=== PATIENT | male | born 1995 | race Caucasian/White ===

== ENCOUNTER 2018-01-18 03:08 | Emergency (ER) | payer MEDICAID ==
[~2018-01-18] VITALS: Ht 182.9 cm; Wt 67.3 kg
[~2018-01-18 03:08] MED LIST: CLIN300C85 PO; NO HOME MEDS
[2018-01-18 03:11] VITALS: BP 140/81
[2018-01-18] MEDS ORDERED: HYDR25SU32 RC (03:27)
[2018-01-18] MEDS ORDERED: DOCU-28 PO (03:27)
== END 2018-01-18 03:35 | disposition home or self-care (01) ==
LOC: ER 03:09
DX: K64.4 Residual hemorrhoidal skin tags (principal); F17.200 Nicotine dependence, unspecified, uncomplicated; Z79.2 Long term (current) use of antibiotics; Z79.899 Other long term (current) drug therapy
CPT/HCPCS: 99283

== ENCOUNTER 2019-02-01 18:14 | Emergency (ER) | payer MEDICAID ==
[~2019-02-01] VITALS: Ht 182.9 cm; Wt 67.3 kg
[~2019-02-01 18:14] MED LIST changes: +CLIN-90 PO; -CLIN300C85 PO; +DOCU-28 PO; +HYDR25SU32 RC
[2019-02-01 18:29] VITALS: BP 141/91
[2019-02-01 19:51] LABS: BASOPHILS % (AUTO) 0.3 % (0-1); EOSINOPHILS % (AUTO) 0.4 % (0-6); HEMATOCRIT 46.3 % (42.0-52.0); HEMOGLOBIN 15.8 g/dl (14.0-17.9); LYMPHOCYTES # (AUTO) 1.7 X10'3 (1.1-4.8); LYMPHOCYTES % (AUTO) 29.1 % (21-51); MEAN CORPUSCULAR HEMOGLOBIN 31.9 PG (27.0-31.0); MEAN CORPUSCULAR HGB CONC 34.2 g/dL (33.0-36.5); MEAN CORPUSCULAR VOLUME 93.1 FL (78-98); MEAN PLATELET VOLUME 9.9 FL (7.4-10.4); MONOCYTES # (AUTO) 0.5 X10'3 (0-0.9); MONOCYTES % (AUTO) 7.9 % (2-12); NEUTROPHILS # (AUTO) 3.7 X10'3 (1.8-7.7); NEUTROPHILS % (AUTO) 62.3 % (42-75); PLATELET COUNT 253 X10'3 (140-440); RED BLOOD COUNT 4.97 X10'6 (4.70-6.10); RED CELL DISTRIBUTION WIDTH 13.1 % (11.5-14.5); WHITE BLOOD COUNT 5.9 X10'3 (4.5-11.0)
[2019-02-01 20:02] LABS: ALANINE AMINOTRANSFERASE 155 U/L (12-78); ALBUMIN 4.4 G/DL (3.4-5.0); ALBUMIN/GLOBULIN RATIO 1.1 (1.1-1.5); ALKALINE PHOSPHATASE 101 IU/L (46-116); ANION GAP 7 (8-16); ASPARTATE AMINO TRANSFERASE 98 U/L (10-37); BILIRUBIN,TOTAL 0.4 MG/DL (0.1-1.0); BLOOD UREA NITROGEN 8 MG/DL (7-18); BUN/CREATININE RATIO 6.9 (5.4-32.0); CALCIUM 9.4 MG/DL (8.5-10.1); CHLORIDE 101 MMOL/L (99-107); CREATININE 1.16 MG/DL (0.60-1.10); GLUCOSE 89 MG/DL (70-104); LIPASE 101 U/L (73-393); POTASSIUM 3.6 MMOL/L (3.5-5.1); SODIUM 140 MMOL/L (135-145); TOTAL CARBON DIOXIDE 32.1 MMOL/L (24-32); TOTAL PROTEIN 8.4 G/DL (6.4-8.2); eGFR 79 ML/MIN
--- NOTE | 2019-02-01 20:07 | NUR ---
PT HAVING ULTRA SOUND TO THE RIGHT TESTICLE NOW
[2019-02-01 20:22] LABS: CLARITY,URINE CLEAR (Clear); COLOR,URINE YELLOW (Yellow); GLUCOSE, URINE NEGATIVE (Neg); KETONES,URINE NEGATIVE (Neg); LEUKOCYTE ESTERASE ,URINE NEGATIVE (Neg); NITRITES, URINE NEGATIVE (Neg); OCCULT BLOOD,URINE SMALL (Neg); PH,URINE 6.5 (4.8-8.0); PROTEIN,URINE NEGATIVE (Neg); UROBILINOGEN,URINE 0.2 E.U/dL (0.2-1.0)
[2019-02-01 20:23] LABS: UA COLLECTION TYPE CLN CATCH MIDSTREAM
[2019-02-01 20:28] LABS: BACTERIA,URINE NONE SEEN /HPF (Neg); MUCUS STRANDS NONE SEEN /LPF (Neg); SQUAMOUS EPITHELIAL CELL,UR FEW /LPF (FEW); WBC,URINE 0-4 /HPF (0-4)
== END 2019-02-01 21:11 | disposition home or self-care (01) ==
LOC: ER 18:15
DX: R10.32 Left lower quadrant pain (principal); R10.2 Pelvic and perineal pain; F12.90 Cannabis use, unspecified, uncomplicated; F10.99 Alcohol use, unspecified with unspecified alcohol-induced disorder; Z79.899 Other long term (current) drug therapy; Y90.9 Presence of alcohol in blood, level not specified
CPT/HCPCS: 36415; 76870; 80053; 81001; 83690; 85025; 99284

== ENCOUNTER 2019-05-16 15:22 | Emergency (ER) | payer MEDICAID ==
[~2019-05-16] VITALS: Ht 182.9 cm; Wt 72.5 kg
[~2019-05-16 15:22] MED LIST changes: -CLIN-90 PO; +CLIN-97 PO
--- NOTE | 2019-05-16 15:26 | NUR ---
Pts mother has gone home as there are no visitors [phone]
[2019-05-16] MEDS ORDERED: HYDROcodone/acetaminophen 5mg/325mg tablet PO ONE (17:15)
[2019-05-16 18:13] VITALS: BP 122/59
== END 2019-05-16 18:07 | disposition home or self-care (01) ==
LOC: ER 15:23
DX: T20.26XA Burn of second degree of forehead and cheek, initial encounter (principal); T20.17XA Burn of first degree of neck, initial encounter; F12.90 Cannabis use, unspecified, uncomplicated; Z72.89 Other problems related to lifestyle; Z79.899 Other long term (current) drug therapy; X16.XXXA Contact with hot heating appliances, radiators and pipes, initial encounter; Y93.89 Activity, other specified; Y92.89 Other specified places as the place of occurrence of the external cause; Y99.8 Other external cause status
CPT/HCPCS: 16020; 99285

== ENCOUNTER 2019-05-19 13:36 | Outpatient (CLI) | payer MEDICAID ==
[2019-05-19] MEDS ORDERED: gentamicin 0.1% topical ointment 15gm TP ONE (14:56)
== END 2019-05-19 15:33 | disposition home or self-care (01) ==
LOC: WOUND CARE 13:36 → EDSTATUS 13:40 → WOUND CARE 15:33
PROVIDERS: ATTEND Nurse Practitioner
DX: T20.20XA Burn of second degree of head, face, and neck, unspecified site, initial encounter (principal); T31.0 Burns involving less than 10% of body surface; T20.2 Burn of second degree of head, face, and neck; T20.24XD Burn of second degree of nose (septum), subsequent encounter; T20.26XD Burn of second degree of forehead and cheek, subsequent encounter; F12.90 Cannabis use, unspecified, uncomplicated; Z79.899 Other long term (current) drug therapy; Z72.0 Tobacco use; X08.8XXA Exposure to other specified smoke, fire and flames, initial encounter; Y93.89 Activity, other specified; Y92.89 Other specified places as the place of occurrence of the external cause; Y99.9 Unspecified external cause status
CPT/HCPCS: G0463

== ENCOUNTER 2019-05-22 13:45 | Outpatient (CLI) | payer MEDICAID ==
[2019-05-22] MEDS ORDERED: gentamicin 0.1% topical ointment 15gm TP ONE (14:03)
== END 2019-05-22 14:34 | disposition home or self-care (01) ==
LOC: WOUND CARE 13:45
PROVIDERS: ATTEND Nurse Practitioner
DX: T20.20XD Burn of second degree of head, face, and neck, unspecified site, subsequent encounter (principal); T31.0 Burns involving less than 10% of body surface; T20.2 Burn of second degree of head, face, and neck; T20.24XD Burn of second degree of nose (septum), subsequent encounter; T20.26XD Burn of second degree of forehead and cheek, subsequent encounter; F12.90 Cannabis use, unspecified, uncomplicated; Z79.899 Other long term (current) drug therapy; Z72.0 Tobacco use; X08.8XXD Exposure to other specified smoke, fire and flames, subsequent encounter
CPT/HCPCS: G0463

== ENCOUNTER 2019-05-24 13:30 | Outpatient (CLI) | payer MEDICAID ==
[2019-05-24] MEDS ORDERED: gentamicin 0.1% topical ointment 15gm TP ONE ×2 (14:00→14:03)
== END 2019-05-24 14:17 | disposition home or self-care (01) ==
LOC: WOUND CARE 13:30
PROVIDERS: ATTEND Nurse Practitioner
DX: T20.20XD Burn of second degree of head, face, and neck, unspecified site, subsequent encounter (principal); T31.0 Burns involving less than 10% of body surface; T20.2 Burn of second degree of head, face, and neck; T20.24XD Burn of second degree of nose (septum), subsequent encounter; T20.26XD Burn of second degree of forehead and cheek, subsequent encounter; F12.90 Cannabis use, unspecified, uncomplicated; Z79.899 Other long term (current) drug therapy; Z72.0 Tobacco use; X08.8XXD Exposure to other specified smoke, fire and flames, subsequent encounter
CPT/HCPCS: G0463

== ENCOUNTER 2019-05-29 14:00 | Outpatient (CLI) | payer MEDICAID | END 2019-05-29 14:15 | disposition home or self-care (01) | LOC: EDSTATUS 14:00 → WOUND CARE 14:00 | PROVIDERS: ATTEND Nurse Practitioner | DX: T20.20XD Burn of second degree of head, face, and neck, unspecified site, subsequent encounter (principal); T31.0 Burns involving less than 10% of body surface; T20.2 Burn of second degree of head, face, and neck; T20.24XD Burn of second degree of nose (septum), subsequent encounter; T20.26XD Burn of second degree of forehead and cheek, subsequent encounter; F12.90 Cannabis use, unspecified, uncomplicated; Z79.899 Other long term (current) drug therapy; Z72.0 Tobacco use; X08.8XXD Exposure to other specified smoke, fire and flames, subsequent encounter | CPT/HCPCS: G0463 ==

== ENCOUNTER 2020-07-30 17:48 | Emergency (ER) | payer MEDICAID ==
[~2020-07-30] VITALS: Ht 185.4 cm; Wt 63.6 kg
[2020-07-30 18:16] VITALS: BP 115/74
[2020-07-30] MEDS ORDERED: PENI500T2 PO (18:19)
[2020-07-30] MEDS ORDERED: IBUP-1984 PO (18:19)
== END 2020-07-30 18:51 | disposition home or self-care (01) ==
LOC: ER 17:49
DX: K04.7 Periapical abscess without sinus (principal); K08.89 Other specified disorders of teeth and supporting structures; R51.9 Headache, unspecified; F12.90 Cannabis use, unspecified, uncomplicated; Z72.89 Other problems related to lifestyle; Z79.2 Long term (current) use of antibiotics; Z79.899 Other long term (current) drug therapy
CPT/HCPCS: 99283

== ENCOUNTER 2021-04-29 16:53 | Emergency (ER) | payer MEDICAID ==
[~2021-04-29] VITALS: Ht 182.9 cm; Wt 70.5 kg
[2021-04-29 16:56] VITALS: BP 127/91
[2021-04-29] MEDS ORDERED: hydrOXYzine 25 MG tablet PO ONE (17:00)
[2021-04-29] MEDS ORDERED: triamcinolone acetonide 40mg/ml inj IM ONE (17:00)
[2021-04-29] MEDS ORDERED: ALBU6.7H9 INH (17:02)
== END 2021-04-29 17:35 | disposition home or self-care (01) ==
LOC: ER 16:53
DX: L23.7 Allergic contact dermatitis due to plants, except food (principal); F12.90 Cannabis use, unspecified, uncomplicated; Z79.2 Long term (current) use of antibiotics; Z79.899 Other long term (current) drug therapy; Z72.89 Other problems related to lifestyle
CPT/HCPCS: 96372; 99283; J3301; Q0177

== ENCOUNTER 2021-06-14 10:07 | Emergency (ER) | payer MEDICAID ==
[~2021-06-14] VITALS: Ht 185.4 cm; Wt 77.0 kg
[~2021-06-14 10:07] MED LIST changes: +ALBU6.7H9 INH
[2021-06-14 10:54] VITALS: BP 131/97
[2021-06-14] MEDS ORDERED: HYDR-3972 PO ×2 (12:17→13:48)
--- NOTE | 2021-06-14 12:40 | NUR ---
Patient seen and assessed by provider.
== END 2021-06-14 12:47 | disposition home or self-care (01) ==
LOC: ER 10:07
DX: K04.7 Periapical abscess without sinus (principal); K08.89 Other specified disorders of teeth and supporting structures; F12.90 Cannabis use, unspecified, uncomplicated; Z72.89 Other problems related to lifestyle; Z79.2 Long term (current) use of antibiotics; Z79.899 Other long term (current) drug therapy
CPT/HCPCS: 99283

== ENCOUNTER 2021-10-09 17:21 | Emergency (ER) | payer MEDICAID ==
[~2021-10-09] VITALS: Ht 185.4 cm; Wt 75.0 kg
[2021-10-09] MEDS ORDERED: ringers solution, lacted 1,000 ML IV ONE (17:45)
[2021-10-09 17:52] VITALS: BP 130/68
[2021-10-09 18:20] LABS: BASOPHILS % (AUTO) 0.5 % (0-1); EOSINOPHILS # (AUTO) 0.1 X10'3 (0-0.9); EOSINOPHILS % (AUTO) 1.4 % (0-6); HEMATOCRIT 50.5 % (42.0-52.0); HEMOGLOBIN 16.7 g/dl (14.0-17.9); LYMPHOCYTES # (AUTO) 2.3 X10'3 (1.1-4.8); LYMPHOCYTES % (AUTO) 38.5 % (21-51); MEAN CORPUSCULAR HEMOGLOBIN 31.2 PG (27.0-31.0); MEAN CORPUSCULAR HGB CONC 33.1 g/dL (33.0-36.5); MEAN CORPUSCULAR VOLUME 94.1 FL (78-98); MEAN PLATELET VOLUME 9.8 FL (7.4-10.4); MONOCYTES # (AUTO) 0.5 X10'3 (0-0.9); MONOCYTES % (AUTO) 8.5 % (2-12); NEUTROPHILS % (AUTO) 51.1 % (42-75); PLATELET COUNT 273 X10'3 (140-440); RED BLOOD COUNT 5.37 X10'6 (4.70-6.10); RED CELL DISTRIBUTION WIDTH 13.3 % (11.5-14.5)
[2021-10-09 18:32] LABS: APTT 26 SECONDS (22-32); D-DIMER 0.45 MG/L FEU (0-0.50)
[2021-10-09 18:34] LABS: ALANINE AMINOTRANSFERASE 112 U/L (12-78); ALBUMIN/GLOBULIN RATIO 1.1 (1.1-1.5); ALKALINE PHOSPHATASE 108 IU/L (46-116); ANION GAP 11 (8-16); ASPARTATE AMINO TRANSFERASE 77 U/L (10-37); BILIRUBIN,TOTAL 0.4 MG/DL (0.1-1.0); BLOOD UREA NITROGEN 6 MG/DL (7-18); BUN/CREATININE RATIO 9.1 (5.4-32.0); CALCIUM 8.9 MG/DL (8.5-10.1); CHLORIDE 108 MMOL/L (99-107); CREATININE 0.66 MG/DL (0.60-1.10); GLUCOSE 103 MG/DL (70-104); POTASSIUM 3.4 MMOL/L (3.5-5.1); SODIUM 143 MMOL/L (135-145); TOTAL CARBON DIOXIDE 23.8 MMOL/L (24-32); TOTAL PROTEIN 7.7 G/DL (6.4-8.2); eGFR > 90 ML/MIN
[2021-10-09 18:43] LABS: MAGNESIUM 1.8 MG/DL (1.5-2.4)
== END 2021-10-09 19:39 | disposition left against medical advice (07) ==
LOC: ER 17:22
DX: R07.89 Other chest pain (principal); F12.90 Cannabis use, unspecified, uncomplicated
CPT/HCPCS: 36415; 80053; 83735; 83880; 84484; 85025; 85379; 85610; 85730; 93005; 99284

== ENCOUNTER 2023-02-04 11:42 | Emergency (ER) | payer OTHER, MEDICAID ==
[~2023-02-04] VITALS: Ht 182.9 cm; Wt 64.5 kg
[~2023-02-04 11:42] MED LIST changes: +ALBU6.7H14 INH; -ALBU6.7H9 INH
[2023-02-04] MEDS ORDERED: iohexol 300mg/ml 100ml inj. ONE (12:01)
[2023-02-04 12:03] VITALS: TEMP 98.2
[2023-02-04] MEDS ORDERED: HYDROmorphone 1 mg/ml syringe IV ONE (12:05)
[2023-02-04] MEDS ORDERED: ondansetron/PF 4mg/2ml inj IV ONE (12:05)
[2023-02-04 12:50] LABS: BASOPHILS % (AUTO) 0.7 % (0-1); EOSINOPHILS # (AUTO) 0.1 X10'3 (0-0.9); EOSINOPHILS % (AUTO) 1.7 % (0-6); HEMATOCRIT 42.9 % (42.0-52.0); HEMOGLOBIN 14.3 g/dl (14.0-17.9); LYMPHOCYTES # (AUTO) 1.9 X10'3 (1.1-4.8); LYMPHOCYTES % (AUTO) 39.8 % (21-51); MEAN CORPUSCULAR HEMOGLOBIN 31.7 PG (27.0-31.0); MEAN CORPUSCULAR HGB CONC 33.4 g/dL (33.0-36.5); MEAN CORPUSCULAR VOLUME 94.9 FL (78-98); MEAN PLATELET VOLUME 9.6 FL (7.4-10.4); MONOCYTES # (AUTO) 0.3 X10'3 (0-0.9); MONOCYTES % (AUTO) 7.4 % (2-12); NEUTROPHILS # (AUTO) 2.4 X10'3 (1.8-7.7); NEUTROPHILS % (AUTO) 50.4 % (42-75); PLATELET COUNT 272 X10'3 (140-440); RED BLOOD COUNT 4.53 X10'6 (4.70-6.10); RED CELL DISTRIBUTION WIDTH 13.6 % (11.5-14.5); WHITE BLOOD COUNT 4.7 X10'3 (4.5-11.0)
[2023-02-04 12:56] LABS: BILIRUBIN,URINE NEGATIVE (Neg); CLARITY,URINE CLEAR (Clear); COLOR,URINE YELLOW (Yellow); GLUCOSE, URINE NEGATIVE (Neg); KETONES,URINE NEGATIVE (Neg); LEUKOCYTE ESTERASE ,URINE NEGATIVE (Neg); NITRITES, URINE NEGATIVE (Neg); OCCULT BLOOD,URINE NEGATIVE (Neg); PROTEIN,URINE NEGATIVE (Neg); UROBILINOGEN,URINE 0.2 E.U/dL (0.2-1.0)
[2023-02-04] MEDS ORDERED: ketorolac trometh. 30mg/ml inj. IV ONE (13:00)
[2023-02-04 13:05] LABS: UA COLLECTION TYPE URINAL
[2023-02-04 13:08] LABS: ALANINE AMINOTRANSFERASE 149 U/L (12-78); ALBUMIN 4.2 G/DL (3.4-5.0); ALBUMIN/GLOBULIN RATIO 1.1 (1.1-1.5); ALKALINE PHOSPHATASE 108 IU/L (46-116); ANION GAP 13 (8-16); ASPARTATE AMINO TRANSFERASE 173 U/L (10-37); BILIRUBIN,TOTAL 0.7 MG/DL (0.1-1.0); BLOOD UREA NITROGEN 5 MG/DL (7-18); BUN/CREATININE RATIO 6.7 (10.0-20.0); CALCIUM 8.8 MG/DL (8.5-10.1); CHLORIDE 100 MMOL/L (99-107); CREATININE 0.75 MG/DL (0.60-1.10); GLUCOSE 153 MG/DL (70-104); LIPASE 37 U/L (16-77); POTASSIUM 3.4 MMOL/L (3.5-5.1); SODIUM 138 MMOL/L (135-145); TOTAL CARBON DIOXIDE 25.4 MMOL/L (24-32); TOTAL PROTEIN 8.1 G/DL (6.4-8.2); eCRCL 136 ML/MIN; eGFR > 90 ML/MIN
[2023-02-04] MEDS ORDERED: NAPR-56 PO (13:42)
[2023-02-04] MEDS ORDERED: CYCL-1 PO (13:42)
[2023-02-04 14:04] VITALS: BP 121/85; PULSE 94; RESP 18; O2SAT 100
== END 2023-02-04 14:06 | disposition home or self-care (01) ==
LOC: ER 11:43
DX: S30.1XXA Contusion of abdominal wall, initial encounter (principal); V87.7XXA Person injured in collision between other specified motor vehicles (traffic), initial encounter; F12.10 Cannabis abuse, uncomplicated; Z79.899 Other long term (current) drug therapy
CPT/HCPCS: 36415; 70450; 71260; 72125; 74177; 80053; 81003; 82948; 83690; 85025; 86885; 86900; 86901; 96374; 96375; 99285; J1170; J1885; J2405; J3490; Q9967

== ENCOUNTER 2023-03-15 14:13 | Emergency (ER) | payer MEDICAID ==
[~2023-03-15 14:13] MED LIST changes: +CYCL-1 PO
== END 2023-03-15 16:17 | disposition left against medical advice (07) ==
LOC: ER 14:13
DX: R07.89 Other chest pain (principal); Z53.21 Procedure and treatment not carried out due to patient leaving prior to being seen by health care provider; V89.2XXA Person injured in unspecified motor-vehicle accident, traffic, initial encounter; Y93.89 Activity, other specified; Y92.89 Other specified places as the place of occurrence of the external cause; Y99.8 Other external cause status
CPT/HCPCS: 99281

== ENCOUNTER 2023-07-05 12:22 | Emergency (ER) | payer MEDICAID ==
[~2023-07-05] VITALS: Ht 185.4 cm; Wt 63.0 kg
[2023-07-05 12:26] VITALS: BP 117/75; PULSE 76; RESP 18; TEMP 97.8; O2SAT 98
[2023-07-05] MEDS ORDERED: MECO10005 PO (12:45)
[2023-07-05] MEDS ORDERED: CHLO25CA10 PO (12:45)
[2023-07-05] MEDS ORDERED: FOLI0.8C PO (12:45)
[2023-07-05] MEDS ORDERED: THIA50TA10 PO (12:45)
== END 2023-07-05 12:52 | disposition home or self-care (01) ==
LOC: ER 12:22
DX: Z00.00 Encounter for general adult medical examination without abnormal findings (principal); F10.20 Alcohol dependence, uncomplicated; F12.90 Cannabis use, unspecified, uncomplicated
CPT/HCPCS: 99283

== ENCOUNTER 2023-11-15 11:37 | Inpatient (IN) | payer MEDICAID ==
[~2023-11-15] VITALS: Ht 180.3 cm; Wt 66.3 kg
[~2023-11-15 11:37] MED LIST changes: +CHLO25CA10 PO; +FOLI0.8C PO; +MECO10005 PO; +THIA50TA10 PO
[2023-11-15 13:32] LABS: MEAN CORPUSCULAR HEMOGLOBIN 34.4 PG (27.0-31.0); MEAN CORPUSCULAR HGB CONC 33.9 g/dL (33.0-36.5); MEAN CORPUSCULAR VOLUME 101.5 FL (78-98); MEAN PLATELET VOLUME 9.1 FL (7.4-10.4); PLATELET COUNT 145 X10'3 (140-440); RED BLOOD COUNT 1.94 X10'6 (4.70-6.10); RED CELL DISTRIBUTION WIDTH 17.8 % (11.5-14.5)
[2023-11-15 13:40] LABS: HEMOGLOBIN 6.7 g/dl (14.0-17.9)
[2023-11-15 13:41] LABS: HEMATOCRIT 19.7 % (42.0-52.0)
[2023-11-15 13:44] LABS: ALANINE AMINOTRANSFERASE 41 U/L (12-78); ALBUMIN 2.2 G/DL (3.4-5.0); ALKALINE PHOSPHATASE 176 IU/L (46-116); ANION GAP 9 (8-16); ASPARTATE AMINO TRANSFERASE 122 U/L (10-37); BILIRUBIN,TOTAL 4.5 MG/DL (0.1-1.0); BLOOD UREA NITROGEN 4 MG/DL (7-18); BUN/CREATININE RATIO 5.1 (10.0-20.0); CALCIUM 7.8 MG/DL (8.5-10.1); CHLORIDE 103 MMOL/L (99-107); CREATININE 0.78 MG/DL (0.60-1.10); GLUCOSE 110 MG/DL (70-104); POTASSIUM 3.5 MMOL/L (3.5-5.1); SODIUM 137 MMOL/L (135-145); TOTAL CARBON DIOXIDE 24.9 MMOL/L (24-32); eCRCL 130 ML/MIN; eGFR > 90 ML/MIN
[2023-11-15 13:45] LABS: ALBUMIN/GLOBULIN RATIO 0.5 (1.1-1.5); TOTAL PROTEIN 6.5 G/DL (6.4-8.2)
[2023-11-15 13:53] LABS: TOTAL CELLS COUNTED 100
[2023-11-15 13:54] LABS: ANISOCYTOSIS 1+; HYPOCHROMASIA 1+; PLATELET ESTIMATE NORMAL
[2023-11-15 13:55] LABS: TARGET CELLS 1+
[2023-11-15] MEDS: normal saline 1000ML IV soln IVB ONE (13:56)
[2023-11-15] MEDS: ondansetron/PF 4mg/2ml inj IV ONE (13:56)
[2023-11-15] MEDS: morphine 4 MG/ML inj SYRINge IV ONE (14:01)
[2023-11-15] MEDS: ketorolac trometh 15mg/ml vial 15 MG/ML ML IV ONE (14:06)
[2023-11-15] MEDS ORDERED: iohexol 300mg/ml 100ml inj. ONE (14:16)
[2023-11-15 14:26] LABS: INR 1.6 INR; PROTHROMBIN TIME 16.3 SECONDS (9.0-12.0)
[2023-11-15 14:39] LABS: BILIRUBIN,URINE MODERATE (Neg); CLARITY,URINE CLOUDY (Clear); COLOR,URINE YELLOW (Yellow); GLUCOSE, URINE 100 mg/dl (Neg); KETONES,URINE TRACE mg/dl (Neg); LEUKOCYTE ESTERASE ,URINE NEGATIVE (Neg); NITRITES, URINE POSITIVE (Neg); OCCULT BLOOD,URINE LARGE (Neg); PH,URINE 5.5 (4.8-8.0); PROTEIN,URINE TRACE mg/dl (Neg)
[2023-11-15 14:40] LABS: URINE AMPHETAMINE SCREEN NEGATIVE (Neg); URINE BARBITUATE SCREEN NEGATIVE (Neg); URINE BENZODIAZEPINES SCREEN NEGATIVE (Neg); URINE CANNABINOID SCREEN POSITIVE (Neg); URINE COCAINE SCREEN NEGATIVE (Neg); URINE METHADONE SCREEN NEGATIVE (Neg); URINE OPIATE SCREEN NEGATIVE (Neg); URINE PHENCYCLIDINE SCREEN NEGATIVE (Neg)
[2023-11-15 15:13] LABS: OXYGEN SATURATION (MIXED VEN) 68.1 % (60-80); PO2 MIXED VENOUS (TEMP COR) 36.9 mmHg (35-46)
[2023-11-15 15:36] LABS: UA COLLECTION TYPE CLN CATCH MIDSTREAM
[2023-11-15 15:39] LABS: MUCUS STRANDS MANY /LPF (Neg); SQUAMOUS EPITHELIAL CELL,UR FEW /LPF (FEW)
[2023-11-15 15:40] LABS: BACTERIA,URINE 2+ /HPF (Neg); RBC,URINE 20-50 /HPF (0-2)
[2023-11-15] MEDS: CefTRIAXone 2gm/D5W 50ml BAG 50 ML IV ONE (16:14)
[2023-11-15 16:27] VITALS: BP 117/75; PULSE 96; RESP 12; TEMP 99.2
[2023-11-15 16:47] VITALS: BP 114/70; PULSE 76; RESP 17; TEMP 98.7
[2023-11-15] MEDS ORDERED: acetaminophen 325mg tablet PO PRN (17:00)
[2023-11-15] MEDS ORDERED: potassium Cl 20 mEq SR tablet PO PRN ×2 (17:00)
[2023-11-15] MEDS ORDERED: mag hydrox/Alum hydrox/simeth 30ml oral suspension PO PRN (17:00)
[2023-11-15] MEDS ORDERED: magnesium sulf-water 4G/100mL 100 ML IV PRN (17:00)
[2023-11-15] MEDS ORDERED: potassium Cl 40MEQ/1/2NS 520ml 520 ML IV PRN (17:00)
[2023-11-15] MEDS ORDERED: magnesium sulf-water 2g/50mL 50 ML IV PRN (17:00)
[2023-11-15] MEDS: pantoprazole 40MG/NS 100ML BAG 100 ML IV SCH (17:11)
[2023-11-15] MEDS: pantoprazole 40 MG vial IV STA (17:11)
[2023-11-15 17:47] VITALS: BP 115/71; PULSE 81; RESP 18; TEMP 98.6
[2023-11-15] MEDS ORDERED: LORazepam 2 mg/ml vial IV PRN (17:50)
[2023-11-15 19:00] VITALS: BP 105/68; PULSE 77; RESP 14; TEMP 97.9
[2023-11-15] MEDS: normal saline 1000ml 1,000 ML IV SCH (19:30)
[2023-11-15] MEDS: CefTRIAXone/D5W-Rocephin 1gm 50 ML IV SCH (19:31)
[2023-11-15] MEDS ORDERED: HYDR-3964 PO (19:39)
[2023-11-15] MEDS ORDERED: FLO0.4C (19:39)
[2023-11-15 19:55] LABS: HDL CHOLESTEROL 52 MG/DL (35-60); LDL CHOLESTEROL 89 MG/DL (50-100)
[2023-11-15 19:57] LABS: CHOL/HDL RATIO 3.3 (0.00-4.99); CHOLESTEROL 171 MG/DL (0-200); TRIGLYCERIDES 78 MG/DL (20-135)
[2023-11-15] MEDS: docusate sod 100mg capsule PO SCH (20:00)
[2023-11-15] MEDS: K and/or MAG REPLACEMENT MC SCH (20:38)
[2023-11-15 22:42] LABS: BASOPHILS % (AUTO) 0.3 % (0-1); EOSINOPHILS % (AUTO) 0.4 % (0-6); HEMOGLOBIN 7.2 g/dl (14.0-17.9); LYMPHOCYTES # (AUTO) 1.6 X10'3 (1.1-4.8); LYMPHOCYTES % (AUTO) 16.6 % (21-51); MEAN CORPUSCULAR HEMOGLOBIN 34.3 PG (27.0-31.0); MEAN CORPUSCULAR HGB CONC 34.1 g/dL (33.0-36.5); MEAN CORPUSCULAR VOLUME 100.4 FL (78-98); MEAN PLATELET VOLUME 9.6 FL (7.4-10.4); MONOCYTES # (AUTO) 0.8 X10'3 (0-0.9); MONOCYTES % (AUTO) 7.6 % (2-12); NEUTROPHILS # (AUTO) 7.4 X10'3 (1.8-7.7); NEUTROPHILS % (AUTO) 75.1 % (42-75); PLATELET COUNT 133 X10'3 (140-440); RED BLOOD COUNT 2.11 X10'6 (4.70-6.10); RED CELL DISTRIBUTION WIDTH 16.9 % (11.5-14.5); WHITE BLOOD COUNT 9.9 X10'3 (4.5-11.0)
[2023-11-15 22:47] LABS: HEMATOCRIT 21.2 % (42.0-52.0)
[2023-11-16] VITALS (12 sets, daily range): BP systolic 93–113; BP diastolic 49–75; PULSE 65–82; RESP 14–17; TEMP 97.6–98.8; O2SAT 93–97
[2023-11-16] MEDS: ondansetron/PF 4mg/2ml inj IV PRN (00:10)
[2023-11-16] MEDS: HYDROmorphone inj. 0.5 MG/0.5 ML DISP.SYRIN IV PRN (00:17)
[2023-11-16] MEDS: folic acid 1mg/0.2ml inj IV SCH (01:39)
[2023-11-16] MEDS: thiamine 100mg/ml 2ml inj. IV SCH (01:39)
[2023-11-16] MEDS: octreotide inj. 500 MCG in normal saline 100ml IV soln 97.5 ML IV SCH (01:46)
[2023-11-16 07:14] LABS: BASOPHILS # (AUTO) 0.1 X10'3 (0-0.2); BASOPHILS % (AUTO) 1.3 % (0-1); EOSINOPHILS # (AUTO) 0.1 X10'3 (0-0.9); EOSINOPHILS % (AUTO) 0.9 % (0-6); HEMATOCRIT 23.8 % (42.0-52.0); LYMPHOCYTES # (AUTO) 2.2 X10'3 (1.1-4.8); LYMPHOCYTES % (AUTO) 24.9 % (21-51); MEAN CORPUSCULAR HEMOGLOBIN 34.6 PG (27.0-31.0); MEAN CORPUSCULAR HGB CONC 33.8 g/dL (33.0-36.5); MEAN CORPUSCULAR VOLUME 102.2 FL (78-98); MEAN PLATELET VOLUME 9.8 FL (7.4-10.4); MONOCYTES # (AUTO) 0.8 X10'3 (0-0.9); MONOCYTES % (AUTO) 9.7 % (2-12); NEUTROPHILS # (AUTO) 5.5 X10'3 (1.8-7.7); NEUTROPHILS % (AUTO) 63.2 % (42-75); PLATELET COUNT 138 X10'3 (140-440); RED BLOOD COUNT 2.33 X10'6 (4.70-6.10); RED CELL DISTRIBUTION WIDTH 17.2 % (11.5-14.5); WHITE BLOOD COUNT 8.7 X10'3 (4.5-11.0)
[2023-11-16 07:28] LABS: ALANINE AMINOTRANSFERASE 31 U/L (12-78); ALBUMIN 1.9 G/DL (3.4-5.0); ALBUMIN/GLOBULIN RATIO 0.5 (1.1-1.5); ALKALINE PHOSPHATASE 133 IU/L (46-116); AMYLASE 50 U/L (25-115); ANION GAP 6 (8-16); ASPARTATE AMINO TRANSFERASE 101 U/L (10-37); BLOOD UREA NITROGEN 3 MG/DL (7-18); BUN/CREATININE RATIO 4.2 (10.0-20.0); CALCIUM 7.5 MG/DL (8.5-10.1); CHLORIDE 106 MMOL/L (99-107); CREATININE 0.71 MG/DL (0.60-1.10); ETHANOL < 10 MG/DL (<10); GLUCOSE 82 MG/DL (70-104); LIPASE 17 U/L (16-77); MAGNESIUM 1.4 MG/DL (1.5-2.4); PHOSPHORUS 3.5 MG/DL (2.3-4.5); POTASSIUM 3.8 MMOL/L (3.5-5.1); SODIUM 137 MMOL/L (135-145); TOTAL CARBON DIOXIDE 25.2 MMOL/L (24-32); TOTAL PROTEIN 5.9 G/DL (6.4-8.2); eCRCL 146 ML/MIN; eGFR > 90 ML/MIN
[2023-11-16] MEDS: cyanocobalamin 500mcg tablet PO SCH (11:04)
[2023-11-16] MEDS ORDERED: LIDOcaine 2% Viscous 15ml cup ONE (15:18)
[2023-11-16] MEDS ORDERED: fentaNYL/PF 50MCG/1 ML 2ML syringe ONE (15:18)
[2023-11-16] MEDS ORDERED: MIDAZolam 1 MG/ML 5ML VIAL ONE ×2 (15:18→15:38)
[2023-11-16] MEDS ORDERED: simethicone 40mg/0.6ml oral drops 30ml ONE (15:31)
[2023-11-16 19:03] LABS: HEMOGLOBIN A1C 4.6 % (4.5-6.2)
[2023-11-16 21:01] LABS: BASOPHILS % (AUTO) 0.7 % (0-1); EOSINOPHILS # (AUTO) 0.1 X10'3 (0-0.9); EOSINOPHILS % (AUTO) 1.7 % (0-6); LYMPHOCYTES # (AUTO) 1.3 X10'3 (1.1-4.8); LYMPHOCYTES % (AUTO) 18.1 % (21-51); MEAN CORPUSCULAR HEMOGLOBIN 34.3 PG (27.0-31.0); MEAN CORPUSCULAR HGB CONC 33.9 g/dL (33.0-36.5); MEAN CORPUSCULAR VOLUME 101.2 FL (78-98); MEAN PLATELET VOLUME 9.8 FL (7.4-10.4); MONOCYTES # (AUTO) 0.4 X10'3 (0-0.9); MONOCYTES % (AUTO) 5.9 % (2-12); NEUTROPHILS # (AUTO) 5.2 X10'3 (1.8-7.7); NEUTROPHILS % (AUTO) 73.6 % (42-75); PLATELET COUNT 129 X10'3 (140-440); RED BLOOD COUNT 2.05 X10'6 (4.70-6.10); RED CELL DISTRIBUTION WIDTH 17.3 % (11.5-14.5)
[2023-11-16 21:04] LABS: HEMATOCRIT 20.7 % (42.0-52.0)
[2023-11-16] MEDS: magnesium Cl slow-release 64mg tablet PO PRN (22:21)
[2023-11-17] VITALS (10 sets, daily range): BP systolic 88–115; BP diastolic 41–69; PULSE 67–94; RESP 14–18; TEMP 98.1–99; O2SAT 94–98
[2023-11-17 06:41] LABS: BASOPHILS # (AUTO) 0.1 X10'3 (0-0.2); EOSINOPHILS # (AUTO) 0.2 X10'3 (0-0.9); HEMOGLOBIN 7.4 g/dl (14.0-17.9); RED BLOOD COUNT 2.14 X10'6 (4.70-6.10); WHITE BLOOD COUNT 6.8 X10'3 (4.5-11.0)
[2023-11-17 06:45] LABS: LYMPHOCYTES % (AUTO) 29.4 % (21-51); MEAN CORPUSCULAR HEMOGLOBIN 34.4 PG (27.0-31.0); MEAN CORPUSCULAR HGB CONC 33.9 g/dL (33.0-36.5); MEAN CORPUSCULAR VOLUME 101.4 FL (78-98); MEAN PLATELET VOLUME 9.9 FL (7.4-10.4); MONOCYTES # (AUTO) 0.6 X10'3 (0-0.9); MONOCYTES % (AUTO) 9.1 % (2-12); NEUTROPHILS # (AUTO) 3.9 X10'3 (1.8-7.7); NEUTROPHILS % (AUTO) 57.5 % (42-75); PLATELET COUNT 124 X10'3 (140-440)
[2023-11-17 06:48] LABS: HEMATOCRIT 21.7 % (42.0-52.0)
[2023-11-17 07:07] LABS: ALANINE AMINOTRANSFERASE 30 U/L (12-78); ALBUMIN 1.7 G/DL (3.4-5.0); ALKALINE PHOSPHATASE 116 IU/L (46-116); ANION GAP 3 (8-16); ASPARTATE AMINO TRANSFERASE 94 U/L (10-37); BILIRUBIN,TOTAL 4.6 MG/DL (0.1-1.0); BLOOD UREA NITROGEN 5 MG/DL (7-18); BUN/CREATININE RATIO 6.6 (10.0-20.0); CALCIUM 7.2 MG/DL (8.5-10.1); CHLORIDE 106 MMOL/L (99-107); CREATININE 0.76 MG/DL (0.60-1.10); GLUCOSE 105 MG/DL (70-104); MAGNESIUM 1.3 MG/DL (1.5-2.4); POTASSIUM 3.5 MMOL/L (3.5-5.1); SODIUM 135 MMOL/L (135-145); TOTAL CARBON DIOXIDE 26.1 MMOL/L (24-32); eCRCL 137 ML/MIN; eGFR > 90 ML/MIN
[2023-11-17 07:32] LABS: ALBUMIN/GLOBULIN RATIO 0.5 (1.1-1.5); TOTAL PROTEIN 5.4 G/DL (6.4-8.2)
[2023-11-17] MEDS: pantoprazole 40mg Tablet.DR PO SCH (09:00)
[2023-11-17] MEDS: LORazepam 2 mg/ml vial IV ONE (09:44)
[2023-11-17 13:07] LABS: BASOPHILS # (AUTO) 0.1 X10'3 (0-0.2); BASOPHILS % (AUTO) 0.9 % (0-1); EOSINOPHILS # (AUTO) 0.2 X10'3 (0-0.9); EOSINOPHILS % (AUTO) 3.5 % (0-6); HEMATOCRIT 22.5 % (42.0-52.0); HEMOGLOBIN 7.5 g/dl (14.0-17.9); LYMPHOCYTES # (AUTO) 1.2 X10'3 (1.1-4.8); LYMPHOCYTES % (AUTO) 17.3 % (21-51); MEAN CORPUSCULAR HEMOGLOBIN 34.1 PG (27.0-31.0); MEAN CORPUSCULAR HGB CONC 33.5 g/dL (33.0-36.5); MEAN CORPUSCULAR VOLUME 101.8 FL (78-98); MEAN PLATELET VOLUME 9.8 FL (7.4-10.4); MONOCYTES # (AUTO) 0.6 X10'3 (0-0.9); MONOCYTES % (AUTO) 8.8 % (2-12); NEUTROPHILS % (AUTO) 69.5 % (42-75); PLATELET COUNT 126 X10'3 (140-440); RED BLOOD COUNT 2.21 X10'6 (4.70-6.10); RED CELL DISTRIBUTION WIDTH 17.1 % (11.5-14.5); WHITE BLOOD COUNT 7.1 X10'3 (4.5-11.0)
[2023-11-17 13:20] LABS: HBSAG SCREEN Negative (Negative); HEP A AB, IGM Negative (Negative); HEP B SURF AB Non Reactive (.); HEPATITIS C VIRUS ANTIBODY Non Reactive (Non Reactive)
[2023-11-17 13:21] LABS: ALANINE AMINOTRANSFERASE 27 U/L (12-78); ALBUMIN 1.7 G/DL (3.4-5.0); ALKALINE PHOSPHATASE 127 IU/L (46-116); ANION GAP 4 (8-16); ASPARTATE AMINO TRANSFERASE 93 U/L (10-37); BILIRUBIN,TOTAL 4.2 MG/DL (0.1-1.0); BLOOD UREA NITROGEN 5 MG/DL (7-18); BUN/CREATININE RATIO 6.6 (10.0-20.0); CALCIUM 7.1 MG/DL (8.5-10.1); CHLORIDE 106 MMOL/L (99-107); CREATININE 0.76 MG/DL (0.60-1.10); GLUCOSE 105 MG/DL (70-104); POTASSIUM 3.5 MMOL/L (3.5-5.1); SODIUM 135 MMOL/L (135-145); TOTAL CARBON DIOXIDE 25.2 MMOL/L (24-32); eCRCL 137 ML/MIN; eGFR > 90 ML/MIN
[2023-11-17 13:23] LABS: ALBUMIN/GLOBULIN RATIO 0.4 (1.1-1.5); TOTAL PROTEIN 5.7 G/DL (6.4-8.2)
[2023-11-17] MEDS: pantoprazole 40 MG vial IV SCH (13:25)
[2023-11-17] MEDS ORDERED: iohexol 350MG/ML 100ml bottle IV ONE (14:51)
[2023-11-17] MEDS: LORazepam 2 mg/ml vial IV PRN (19:35)
[2023-11-18 06:00] VITALS: BP 106/49; PULSE 80; RESP 16; TEMP 97.7; O2SAT 93
[2023-11-18 06:38] LABS: BASOPHILS # (AUTO) 0.1 X10'3 (0-0.2); EOSINOPHILS # (AUTO) 0.3 X10'3 (0-0.9); EOSINOPHILS % (AUTO) 4.6 % (0-6); HEMATOCRIT 25.4 % (42.0-52.0); HEMOGLOBIN 8.6 g/dl (14.0-17.9); LYMPHOCYTES # (AUTO) 0.7 X10'3 (1.1-4.8); LYMPHOCYTES % (AUTO) 9.9 % (21-51); MEAN CORPUSCULAR HEMOGLOBIN 33.5 PG (27.0-31.0); MEAN CORPUSCULAR HGB CONC 33.9 g/dL (33.0-36.5); MEAN PLATELET VOLUME 9.7 FL (7.4-10.4); MONOCYTES # (AUTO) 0.7 X10'3 (0-0.9); NEUTROPHILS # (AUTO) 5.5 X10'3 (1.8-7.7); NEUTROPHILS % (AUTO) 73.5 % (42-75); PLATELET COUNT 116 X10'3 (140-440); RED BLOOD COUNT 2.56 X10'6 (4.70-6.10); RED CELL DISTRIBUTION WIDTH 18.4 % (11.5-14.5); WHITE BLOOD COUNT 7.5 X10'3 (4.5-11.0)
[2023-11-18 07:10] LABS: ALANINE AMINOTRANSFERASE 27 U/L (12-78); ALBUMIN 1.6 G/DL (3.4-5.0); ALBUMIN/GLOBULIN RATIO 0.4 (1.1-1.5); ALKALINE PHOSPHATASE 134 IU/L (46-116); ANION GAP 6 (8-16); ASPARTATE AMINO TRANSFERASE 76 U/L (10-37); BILIRUBIN,TOTAL 3.6 MG/DL (0.1-1.0); BLOOD UREA NITROGEN 5 MG/DL (7-18); BUN/CREATININE RATIO 8.3 (10.0-20.0); CALCIUM 7.4 MG/DL (8.5-10.1); CHLORIDE 104 MMOL/L (99-107); GLUCOSE 96 MG/DL (70-104); MAGNESIUM 1.3 MG/DL (1.5-2.4); POTASSIUM 3.5 MMOL/L (3.5-5.1); SODIUM 135 MMOL/L (135-145); TOTAL CARBON DIOXIDE 24.9 MMOL/L (24-32); TOTAL PROTEIN 5.4 G/DL (6.4-8.2); eCRCL 173 ML/MIN; eGFR > 90 ML/MIN
[2023-11-18] MEDS ORDERED: LACT1CAP26 PO (07:30)
[2023-11-18] MEDS ORDERED: PANT40TA54 PO (07:30)
[2023-11-18] MEDS ORDERED: CEFD300C3 PO (07:30)
[2023-11-18] MEDS: magnesium hydroxide 30ml (MOM) UD suspension PO PRN (09:58)
[2023-11-18 10:00] VITALS: BP 122/75; PULSE 94; RESP 16; TEMP 97.9; O2SAT 94
[2023-11-19] MEDS ORDERED: LORazepam 1 MG tablet PO PRN (14:30)
[2023-11-21] MEDS ORDERED: LORazepam 1 MG tablet PO PRN (14:30)
== END 2023-11-18 16:16 | disposition home or self-care (01) | DRG 663 ==
LOC: ER 11:37 → ED HOLD 17:13 → EDBEDREQ 11-16 01:06 → ORTHO 4S 11-16 02:30
PROVIDERS: ADMIT Family Medicine; ATTEND Family Medicine
PROC: BW211ZZ Computerized Tomography (CT Scan) of Abdomen and Pelvis using Low Osmolar Contrast (ICD-10-PCS; 2023-11-15)
PROC: 30233N1 Transfusion of Nonautologous Red Blood Cells into Peripheral Vein, Percutaneous Approach (ICD-10-PCS; 2023-11-15)
PROC: 0DJ08ZZ Inspection of Upper Intestinal Tract, Via Natural or Artificial Opening Endoscopic (ICD-10-PCS; principal; 2023-11-16)
PROC: B32T1ZZ Computerized Tomography (CT Scan) of Left Pulmonary Artery using Low Osmolar Contrast (ICD-10-PCS; 2023-11-17)
PROC: B3201ZZ Computerized Tomography (CT Scan) of Thoracic Aorta using Low Osmolar Contrast (ICD-10-PCS; 2023-11-17)
PROC: B32S1ZZ Computerized Tomography (CT Scan) of Right Pulmonary Artery using Low Osmolar Contrast (ICD-10-PCS; 2023-11-17)
DX: D53.1 Other megaloblastic anemias, not elsewhere classified (principal); K76.6 Portal hypertension; K72.10 Chronic hepatic failure without coma; K29.71 Gastritis, unspecified, with bleeding; K70.11 Alcoholic hepatitis with ascites; N39.0 Urinary tract infection, site not specified; F14.90 Cocaine use, unspecified, uncomplicated; R73.9 Hyperglycemia, unspecified; K31.89 Other diseases of stomach and duodenum; Z87.442 Personal history of urinary calculi; Z87.891 Personal history of nicotine dependence; Z79.899 Other long term (current) drug therapy
CPT/HCPCS: 36415; 36430; 43235; 71275; 74018; 74177; 76700; 80053; 80061; 80305; 80320; 81001; 82150; 82248; 82607; 82810; 82948; 83036; 83605; 83690; 83735; 84100; 84145; 84484; 85007; 85025; 85379; 85610; 86706; 86709; 86803; 86885; 86900; 86901; 86920; 87040; 87081; 87088; 87340; 87522; 93005; 93970; 96365; 96375; 99152; 99291; A4620; G0378; J0696; J1171; J2060; J2250; J2270; J2354; J2405; J2470; J3010; J3411; J3490; J7030; J7040; P9016; Q9967

== ENCOUNTER 2023-12-06 14:43 | Emergency (ER) | payer MEDICAID ==
[~2023-12-06] VITALS: Ht 182.9 cm; Wt 64.2 kg
[~2023-12-06 14:43] MED LIST changes: -ALBU6.7H14 INH; -CHLO25CA10 PO; -CLIN-97 PO; -CYCL-1 PO; -DOCU-28 PO; -FOLI0.8C PO; -HYDR25SU32 RC; +LACT1CAP26 PO; -MECO10005 PO; +PANT40TA54 PO; -THIA50TA10 PO
[2023-12-06 15:08] VITALS: BP 104/51; PULSE 80; RESP 18; TEMP 97.8; O2SAT 100
== END 2023-12-06 16:24 | disposition home or self-care (01) ==
LOC: ER 14:44
DX: F10.129 Alcohol abuse with intoxication, unspecified (principal); K72.90 Hepatic failure, unspecified without coma; F12.90 Cannabis use, unspecified, uncomplicated; F14.90 Cocaine use, unspecified, uncomplicated; Z79.899 Other long term (current) drug therapy; Y90.9 Presence of alcohol in blood, level not specified
CPT/HCPCS: 99281

== ENCOUNTER 2024-02-18 18:40 | Inpatient (IN) | payer MEDICAID ==
[~2024-02-18] VITALS: Ht 182.9 cm; Wt 137.0 kg
[~2024-02-18 18:40] MED LIST changes: +CHLO25CA10 PO; +NALT50TA5 PO
[2024-02-18 19:15] LABS: BILIRUBIN,URINE MODERATE (Neg); CLARITY,URINE CLEAR (Clear); COLOR,URINE YELLOW (Yellow); GLUCOSE, URINE 100 mg/dl (Neg); KETONES,URINE 15 mg/dl (Neg); LEUKOCYTE ESTERASE ,URINE NEGATIVE (Neg); OCCULT BLOOD,URINE NEGATIVE (Neg); PH,URINE 6.5 (4.8-8.0); PROTEIN,URINE TRACE mg/dl (Neg)
[2024-02-18 19:21] LABS: NITRITES, URINE NEGATIVE (Neg); UA COLLECTION TYPE VOIDED
[2024-02-18 19:23] LABS: BACTERIA,URINE FEW /HPF (Neg); CAL OXALATE CRYSTALS 3+ /HPF (NEGATIVE); RBC,URINE 0-2 /HPF (0-2); SQUAMOUS EPITHELIAL CELL,UR FEW /LPF (FEW); WBC,URINE 0-4 /HPF (0-4)
[2024-02-18 19:28] LABS: BASOPHILS % (AUTO) 0.8 % (0-1); EOSINOPHILS # (AUTO) 0.1 X10'3 (0-0.9); EOSINOPHILS % (AUTO) 1.9 % (0-6); HEMATOCRIT 31.3 % (42.0-52.0); HEMOGLOBIN 10.7 g/dl (14.0-17.9); LYMPHOCYTES # (AUTO) 1.3 X10'3 (1.1-4.8); LYMPHOCYTES % (AUTO) 22.5 % (21-51); MEAN CORPUSCULAR HEMOGLOBIN 32.1 PG (27.0-31.0); MEAN CORPUSCULAR HGB CONC 34.1 g/dL (33.0-36.5); MEAN PLATELET VOLUME 9.4 FL (7.4-10.4); MONOCYTES # (AUTO) 0.5 X10'3 (0-0.9); MONOCYTES % (AUTO) 9.1 % (2-12); NEUTROPHILS # (AUTO) 3.8 X10'3 (1.8-7.7); NEUTROPHILS % (AUTO) 65.7 % (42-75); PLATELET COUNT 90 X10'3 (140-440); RED BLOOD COUNT 3.33 X10'6 (4.70-6.10); RED CELL DISTRIBUTION WIDTH 17.9 % (11.5-14.5); WHITE BLOOD COUNT 5.8 X10'3 (4.5-11.0)
[2024-02-18 19:43] LABS: ALANINE AMINOTRANSFERASE 53 U/L (12-78); ALBUMIN 2.9 G/DL (3.4-5.0); ALKALINE PHOSPHATASE 235 IU/L (46-116); ANION GAP 5 (8-16); ASPARTATE AMINO TRANSFERASE 107 U/L (10-37); BILIRUBIN,TOTAL 4.1 MG/DL (0.1-1.0); BLOOD UREA NITROGEN 8 MG/DL (7-18); BUN/CREATININE RATIO 10.4 (10.0-20.0); CALCIUM 8.8 MG/DL (8.5-10.1); CHLORIDE 103 MMOL/L (99-107); CREATININE 0.77 MG/DL (0.60-1.10); GLUCOSE 119 MG/DL (70-104); LIPASE 99 U/L (16-77); POTASSIUM 3.7 MMOL/L (3.5-5.1); SODIUM 137 MMOL/L (135-145); TOTAL CARBON DIOXIDE 29.5 MMOL/L (24-32); eCRCL 134 ML/MIN; eGFR > 90 ML/MIN
[2024-02-18 19:44] LABS: ALBUMIN/GLOBULIN RATIO 0.7 (1.1-1.5); TOTAL PROTEIN 7.2 G/DL (6.4-8.2)
[2024-02-18] MEDS: ondansetron/PF 4mg/2ml inj IV ONE (20:31)
[2024-02-18] MEDS: normal saline 1000ml 1,000 ML IV ONE (20:31)
[2024-02-18] MEDS ORDERED: acetaminophen 325mg tablet PO PRN (21:50)
[2024-02-18] MEDS ORDERED: magnesium sulf-water 2g/50mL 50 ML IV PRN (21:50)
[2024-02-18] MEDS ORDERED: magnesium hydroxide 30ml (MOM) UD suspension PO PRN (21:50)
[2024-02-18] MEDS ORDERED: mag hydrox/Alum hydrox/simeth 30ml oral suspension PO PRN (21:50)
[2024-02-18] MEDS ORDERED: potassium Cl 40MEQ/1/2NS 520ml 520 ML IV PRN (21:50)
[2024-02-18] MEDS ORDERED: docusate sod 100mg capsule PO PRN (21:50)
[2024-02-18] MEDS ORDERED: magnesium sulf-water 4G/100mL 100 ML IV PRN (21:50)
[2024-02-18] MEDS ORDERED: potassium Cl 20 mEq SR tablet PO PRN ×2 (21:50)
[2024-02-18] MEDS ORDERED: HYDROmorphone/PF 0.2 MG/ML SYRINGE IV PRN (21:50)
[2024-02-18] MEDS ORDERED: ondansetron/PF 4mg/2ml inj IV PRN (21:50)
[2024-02-18] MEDS: pantoprazole 40 MG vial IV ONE (22:03)
[2024-02-18 22:07] LABS: BILIRUBIN,DIRECT 1.4 MG/DL (0-0.3)
[2024-02-18 22:17] LABS: APTT 34 SECONDS (22-32); HEMOGLOBIN A1C 4.4 % (4.5-6.2); INR 1.6 INR; PROTHROMBIN TIME 15.9 SECONDS (9.0-12.0)
[2024-02-18] MEDS: normal saline 1000ml 1,000 ML IV SCH (22:32)
[2024-02-18 23:25] VITALS: BP 107/72; PULSE 60; RESP 19; TEMP 97.5; O2SAT 100
[2024-02-19] VITALS (15 sets, daily range): BP systolic 86–136; BP diastolic 45–76; PULSE 51–78; RESP 10–20; TEMP 97.6–99.3; O2SAT 98–100
[2024-02-19] MEDS: HYDROmorphone inj. 0.5 MG/0.5 ML DISP.SYRIN IV PRN (00:10)
[2024-02-19] MEDS: mineral oil 133ml enema RC STA (00:10)
[2024-02-19 01:46] LABS: BASOPHILS # (AUTO) 0.1 X10'3 (0-0.2); BASOPHILS % (AUTO) 1.1 % (0-1); EOSINOPHILS # (AUTO) 0.1 X10'3 (0-0.9); EOSINOPHILS % (AUTO) 1.4 % (0-6); HEMOGLOBIN 10.5 g/dl (14.0-17.9); LYMPHOCYTES # (AUTO) 2.9 X10'3 (1.1-4.8); MEAN CORPUSCULAR HEMOGLOBIN 31.9 PG (27.0-31.0); MEAN CORPUSCULAR HGB CONC 33.9 g/dL (33.0-36.5); MEAN CORPUSCULAR VOLUME 94.1 FL (78-98); MEAN PLATELET VOLUME 9.1 FL (7.4-10.4); MONOCYTES # (AUTO) 0.3 X10'3 (0-0.9); MONOCYTES % (AUTO) 5.5 % (2-12); NEUTROPHILS # (AUTO) 2.2 X10'3 (1.8-7.7); PLATELET COUNT 82 X10'3 (140-440); RED CELL DISTRIBUTION WIDTH 17.8 % (11.5-14.5); WHITE BLOOD COUNT 5.5 X10'3 (4.5-11.0)
[2024-02-19 01:54] LABS: RED BLOOD COUNT 3.3 X10'6 (4.70-6.10); RETICULOCYTE % (AUTO) 0.7 % (0.5-1.5)
[2024-02-19 02:02] LABS: ALANINE AMINOTRANSFERASE 47 U/L (12-78); ALBUMIN 2.6 G/DL (3.4-5.0); ALBUMIN/GLOBULIN RATIO 0.7 (1.1-1.5); ALKALINE PHOSPHATASE 212 IU/L (46-116); ANION GAP 10 (8-16); ASPARTATE AMINO TRANSFERASE 101 U/L (10-37); BLOOD UREA NITROGEN 6 MG/DL (7-18); BUN/CREATININE RATIO 10.2 (10.0-20.0); CHLORIDE 106 MMOL/L (99-107); CHOL/HDL RATIO 2.3 (0.00-4.99); CHOLESTEROL 288 MG/DL (0-200); CREATININE 0.59 MG/DL (0.60-1.10); GLUCOSE 91 MG/DL (70-104); HDL CHOLESTEROL 125 MG/DL (35-60); LACTATE DEHYDROGENASE 174 U/L (85-227); LDL CHOLESTEROL 82 MG/DL (50-100); MAGNESIUM 1.5 MG/DL (1.5-2.4); PHOSPHORUS 3.7 MG/DL (2.3-4.5); POTASSIUM 3.7 MMOL/L (3.5-5.1); SODIUM 142 MMOL/L (135-145); TOTAL CARBON DIOXIDE 25.7 MMOL/L (24-32); TOTAL PROTEIN 6.5 G/DL (6.4-8.2); TRIGLYCERIDES 88 MG/DL (20-135); eCRCL 175 ML/MIN; eGFR > 90 ML/MIN
[2024-02-19 02:10] LABS: % IRON SATURATION 50 % (11-46); IRON 69 UG/DL (53-167); TOTAL IRON BINDING CAPACITY 137 UG/DL (259-388)
[2024-02-19 02:53] LABS: PLATELET ESTIMATE DECREASED; TOTAL CELLS COUNTED 100
[2024-02-19 02:54] LABS: POIKILOCYTOSIS 4+; TARGET CELLS 2+; TEAR DROP CELLS 3+
[2024-02-19 02:55] LABS: ACANTHOCYTES 1+; BURR CELLS 3+
[2024-02-19] MEDS: octreotide inj. 500 MCG in normal saline 100ml IV soln 97.5 ML IV SCH (03:32)
[2024-02-19] MEDS: K and/or MAG REPLACEMENT MC SCH (08:00)
[2024-02-19] MEDS: folic acid 1mg/0.2ml inj IV SCH (09:01)
[2024-02-19] MEDS: thiamine 100mg/ml 2ml inj. IV SCH (09:01)
[2024-02-19] MEDS: multivitamins, therapeutics tablet PO SCH (09:02)
[2024-02-19] MEDS: pantoprazole 40 MG vial IV SCH (09:02)
[2024-02-19] MEDS ORDERED: LIDOcaine 2% Viscous 15ml cup ONE (14:40)
[2024-02-19] MEDS ORDERED: MIDAZolam 1 MG/ML 5ML VIAL ONE (14:45)
[2024-02-19] MEDS ORDERED: fentaNYL/PF 50MCG/1 ML 2ML syringe ONE (14:45)
[2024-02-19 16:42] LABS: WHITE BLOOD COUNT 4.5 X10'3 (4.5-11.0)
[2024-02-19 16:43] LABS: HEMATOCRIT 32.7 % (42.0-52.0); HEMOGLOBIN 11.1 g/dl (14.0-17.9); MEAN CORPUSCULAR HEMOGLOBIN 32.4 PG (27.0-31.0); MEAN CORPUSCULAR HGB CONC 33.8 g/dL (33.0-36.5); MEAN CORPUSCULAR VOLUME 95.6 FL (78-98); MEAN PLATELET VOLUME 9.4 FL (7.4-10.4); PLATELET COUNT 96 X10'3 (140-440); RED BLOOD COUNT 3.42 X10'6 (4.70-6.10); RED CELL DISTRIBUTION WIDTH 17.9 % (11.5-14.5)
[2024-02-19 17:06] LABS: H PYLORI ANTIBODY NEGATIVE (Neg)
[2024-02-19] MEDS ORDERED: HYDROcodone/acetaminophen 5mg/325mg tablet PO PRN (17:35)
[2024-02-19] MEDS ORDERED: morphine 2 MG/ML inj. syringe IV PRN (17:35)
[2024-02-19] MEDS ORDERED: simethicone 40mg/0.6ml oral drops 30ml ONE (18:00)
[2024-02-19 18:18] LABS: LIPASE 69 U/L (16-77)
[2024-02-19] MEDS: morphine 2 MG/ML inj. syringe IV PRN (20:18)
[2024-02-20] MEDS: LORazepam 2 mg/ml vial IV PRN (01:14)
[2024-02-20 05:34] VITALS: RESP 18; O2SAT 96
[2024-02-20 06:00] VITALS: BP 95/48; PULSE 67; RESP 19; TEMP 97.7; O2SAT 98
[2024-02-20 06:45] LABS: HEMATOCRIT 28.5 % (42.0-52.0); HEMOGLOBIN 9.9 g/dl (14.0-17.9)
[2024-02-20 06:47] LABS: BASOPHILS % (AUTO) 0.6 % (0-1); EOSINOPHILS # (AUTO) 0.1 X10'3 (0-0.9); EOSINOPHILS % (AUTO) 1.1 % (0-6); LYMPHOCYTES # (AUTO) 0.8 X10'3 (1.1-4.8); LYMPHOCYTES % (AUTO) 9.8 % (21-51); MEAN CORPUSCULAR HEMOGLOBIN 32.9 PG (27.0-31.0); MEAN CORPUSCULAR HGB CONC 34.8 g/dL (33.0-36.5); MEAN CORPUSCULAR VOLUME 94.5 FL (78-98); MEAN PLATELET VOLUME 10.1 FL (7.4-10.4); MONOCYTES # (AUTO) 1.8 X10'3 (0-0.9); MONOCYTES % (AUTO) 22.6 % (2-12); NEUTROPHILS # (AUTO) 5.2 X10'3 (1.8-7.7); NEUTROPHILS % (AUTO) 65.9 % (42-75); PLATELET COUNT 95 X10'3 (140-440); RED BLOOD COUNT 3.01 X10'6 (4.70-6.10); RED CELL DISTRIBUTION WIDTH 17.6 % (11.5-14.5); WHITE BLOOD COUNT 7.9 X10'3 (4.5-11.0)
[2024-02-20 06:51] LABS: ALANINE AMINOTRANSFERASE 42 U/L (12-78); ALBUMIN 2.2 G/DL (3.4-5.0); ALKALINE PHOSPHATASE 105 IU/L (46-116); ANION GAP 6 (8-16); ASPARTATE AMINO TRANSFERASE 96 U/L (10-37); BILIRUBIN,TOTAL 6.4 MG/DL (0.1-1.0); BLOOD UREA NITROGEN 6 MG/DL (7-18); BUN/CREATININE RATIO 9.4 (10.0-20.0); CALCIUM 7.8 MG/DL (8.5-10.1); CHLORIDE 107 MMOL/L (99-107); CREATININE 0.64 MG/DL (0.60-1.10); GLUCOSE 105 MG/DL (70-104); MAGNESIUM 1.2 MG/DL (1.5-2.4); POTASSIUM 3.8 MMOL/L (3.5-5.1); SODIUM 139 MMOL/L (135-145); TOTAL CARBON DIOXIDE 25.6 MMOL/L (24-32); eCRCL 190 ML/MIN; eGFR > 90 ML/MIN
[2024-02-20 06:56] LABS: ALBUMIN/GLOBULIN RATIO 0.6 (1.1-1.5); PHOSPHORUS 4.2 MG/DL (2.3-4.5); TOTAL PROTEIN 5.6 G/DL (6.4-8.2)
[2024-02-20 08:33] LABS: HAPTOGLOBIN <10 mg/dL (17-317)
[2024-02-20] MEDS: HYDROcodone/acetaminophen 10/325mg tab PO PRN (08:35)
[2024-02-20 09:11] VITALS: RESP 16
[2024-02-20 10:00] VITALS: BP 92/45; PULSE 71; RESP 16; TEMP 98.3; O2SAT 97
[2024-02-20] MEDS: magnesium Cl slow-release 64mg tablet PO PRN (10:03)
[2024-02-20 10:52] VITALS: RESP 16
[2024-02-20] MEDS ORDERED: FERR324T4 PO (11:05)
[2024-02-20] MEDS ORDERED: FOLI0.4T6 PO (11:05)
[2024-02-20] MEDS ORDERED: MULT-1085 PO (11:05)
[2024-02-20] MEDS ORDERED: THIA50TA10 PO (11:05)
[2024-02-20] MEDS ORDERED: PANT40TA54 PO (11:05)
[2024-02-20 12:03] LABS: LIPASE 24 U/L (16-77)
[2024-02-20] MEDS ORDERED: LORazepam 1 MG tablet PO PRN (21:35)
[2024-02-20] MEDS ORDERED: LORazepam 2 mg/ml vial IV PRN (21:35)
[2024-02-22 05:13] LABS: HBSAG SCREEN Negative (Negative); HEPATITIS C VIRUS ANTIBODY Non Reactive (Non Reactive)
[2024-02-22] MEDS ORDERED: LORazepam 2 mg/ml vial IV PRN (21:35)
[2024-02-22] MEDS ORDERED: LORazepam 1 MG tablet PO PRN (21:35)
== END 2024-02-20 15:14 | disposition home or self-care (01) | DRG 243 ==
LOC: ER 18:40 → UNDOADMIN 20:41 → ED HOLD 20:41 → SUR 3N 23:18 → ED HOLD 23:18 → UNDODISIN 02-20 15:14
PROVIDERS: ADMIT Internal Medicine Critical Care Medicine; ATTEND Internal Medicine
PROC: 0DJ08ZZ Inspection of Upper Intestinal Tract, Via Natural or Artificial Opening Endoscopic (ICD-10-PCS; principal; 2024-02-19)
DX: K21.01 Gastro-esophageal reflux disease with esophagitis, with bleeding (principal); K85.90 Acute pancreatitis without necrosis or infection, unspecified; D69.6 Thrombocytopenia, unspecified; R17 Unspecified jaundice; E88.09 Other disorders of plasma-protein metabolism, not elsewhere classified; F10.10 Alcohol abuse, uncomplicated; R79.1 Abnormal coagulation profile; F12.10 Cannabis abuse, uncomplicated; K59.00 Constipation, unspecified; R74.01 Elevation of levels of liver transaminase levels; D50.8 Other iron deficiency anemias
CPT/HCPCS: 36415; 43235; 74018; 80053; 80061; 81001; 82103; 82248; 82390; 82948; 83010; 83036; 83540; 83550; 83605; 83615; 83690; 83735; 84100; 84145; 84466; 85007; 85025; 85027; 85045; 85610; 85651; 85730; 86677; 86803; 86880; 86885; 86886; 86900; 86901; 87081; 87340; 87522; 96361; 96374; 96375; 99152; 99285; A4620; G0378; J1171; J2060; J2250; J2270; J2354; J2405; J2470; J3010; J3411; J3490; J7030

== ENCOUNTER 2024-05-04 10:33 | Emergency (ER) | payer MEDICAID ==
[~2024-05-04] VITALS: Ht 182.9 cm; Wt 63.6 kg
[~2024-05-04 10:33] MED LIST changes: -CHLO25CA10 PO; +FERR324T4 PO; -LACT1CAP26 PO; +MULT-1085 PO; -NALT50TA5 PO; -NO HOME MEDS; +THIA50TA10 PO
[2024-05-04] MEDS: ketorolac trometh 15mg/ml vial 15 MG/ML ML IM ONE (14:58)
[2024-05-04] MEDS: ketorolac trometh 30MG/ML vial 30 MG/ML VIAL IM ONE (14:59)
[2024-05-04] MEDS: HYDROcodone/acetaminophen 10/325mg tab PO ONE (14:59)
[2024-05-04] MEDS ORDERED: HYDR-3972 PO (15:17)
[2024-05-04 15:45] VITALS: BP 102/62; PULSE 72; RESP 18; O2SAT 97
== END 2024-05-04 15:50 | disposition home or self-care (01) ==
LOC: ER 10:34
DX: S92.002A Unspecified fracture of left calcaneus, initial encounter for closed fracture (principal); S80.01XA Contusion of right knee, initial encounter; Z79.899 Other long term (current) drug therapy; F12.90 Cannabis use, unspecified, uncomplicated; Z56.0 Unemployment, unspecified; F10.90 Alcohol use, unspecified, uncomplicated; Y90.9 Presence of alcohol in blood, level not specified; W13.8XXA Fall from, out of or through other building or structure, initial encounter; Y93.89 Activity, other specified; Y92.89 Other specified places as the place of occurrence of the external cause; Y99.8 Other external cause status
CPT/HCPCS: 29515; 73564; 73610; 73630; 96372; 99285; J1885

== ENCOUNTER 2024-05-08 12:48 | Emergency (ER) | payer MEDICAID ==
[~2024-05-08] VITALS: Ht 172.7 cm; Wt 68.2 kg
[~2024-05-08 12:48] MED LIST changes: +HYDR-3972 PO
[2024-05-08 13:00] VITALS: BP 128/78; PULSE 104; RESP 18; TEMP 97.8; O2SAT 100
== END 2024-05-08 15:19 | disposition home or self-care (01) ==
LOC: ER 12:48
DX: S92.902A Unspecified fracture of left foot, initial encounter for closed fracture (principal); F12.90 Cannabis use, unspecified, uncomplicated; F10.90 Alcohol use, unspecified, uncomplicated; X58.XXXA Exposure to other specified factors, initial encounter; Y93.89 Activity, other specified; Y92.89 Other specified places as the place of occurrence of the external cause; Y99.8 Other external cause status; Y90.9 Presence of alcohol in blood, level not specified
CPT/HCPCS: 99281

== ENCOUNTER 2024-08-09 07:04 | Day surgery (SDC) | payer MEDICAID ==
[~2024-08-09] VITALS: Ht 185.4 cm; Wt 65.7 kg
[~2024-08-09 07:04] MED LIST changes: -FERR324T4 PO; -HYDR-3972 PO; +LORA10CA PO; -MULT-1085 PO; -PANT40TA54 PO; -THIA50TA10 PO
[2024-08-09 07:27] VITALS: BP 118/53; PULSE 64; RESP 16
[2024-08-09] MEDS ORDERED: propofol inj 20 ML IV ONE ×3 (08:19)
[2024-08-09 08:30] VITALS: BP 125/67; PULSE 121; RESP 38; O2SAT 90
[2024-08-09 08:40] VITALS: BP 132/66; PULSE 106; RESP 28; O2SAT 92
[2024-08-09 08:45] VITALS: BP 121/47; PULSE 80; RESP 20; O2SAT 99
[2024-08-09 08:50] VITALS: BP 103/60; PULSE 72; RESP 17; O2SAT 100
[2024-08-09 09:00] VITALS: BP 112/56; PULSE 62; RESP 16; O2SAT 100
== END 2024-08-09 09:05 | disposition home or self-care (01) ==
LOC: GI LAB 07:04
PROVIDERS: ATTEND Internal Medicine Gastroenterology
DX: R10.13 Epigastric pain (principal); K29.70 Gastritis, unspecified, without bleeding
CPT/HCPCS: 43239; J2704; J7030; Z7512

== ENCOUNTER 2024-08-26 10:31 | Emergency (ER) | payer MEDICAID ==
[~2024-08-26] VITALS: Ht 182.9 cm; Wt 62.3 kg
[2024-08-26 10:34] VITALS: TEMP 98.5
[2024-08-26 11:48] LABS: MEAN PLATELET VOLUME 9.6 FL (7.4-10.4); RED CELL DISTRIBUTION WIDTH 16.3 % (11.5-14.5)
--- NOTE | 2024-08-26 11:53 | RADIOLOGY REPORT ---
CT CT ABDOMEN PELVIS INDICATION: abd pain EXAM DATE: 08/26/2024 11:05 AM COMPARISON: CT CT ABDOMEN PELVIS W/ IV CONTRAST on DOS: 02/14/24, CT CT ABDOMEN PELVIS on DOS: 11/15/23, CT CT CHEST ABDOMEN PELVIS on DOS: 02/04/23 RADIATION DOSE: CTDIvol: 6 mGy, DLP: 312 mGy*cm PROCEDURE: Helical CT images were obtained of the abdomen and pelvis without IV contrast Sagittal and coronal reconstructions are provided. ORAL CONTRAST: None. ADDITIONAL IMAGES / REFORMATS: None All C T scans at this medical facility are performed using dose modulation techniques as appropriate to a p erformed exam including the following: Automated exposure control was utilized; adjustment of the MA and/or KV according to patient size; and use of iterative reconstruction technique. FINDINGS: LUNG BASE: Normal. LIVER: Normal. GALLBLADDER AND BILIARY TREE: No calcified gallstones. Normal caliber wall. No intra- or extrahepatic biliary ductal dilation. PANCREAS: Normal. SPLEEN: Normal. BOWEL: Dense material in the stomach could be food.. Normal appendix. ADRENALS: Normal. KIDNEYS AND URETER: Tiny non obstructive left kidney stone. BLADDER: Normal. REPRODUCTIVE ORGANS: Normal. LYMPH NODES:No lymphadenopathy. PERITONEUM: No ascites or free air. No other fluid collection. VESSELS: Normal RETROPERITONEUM: Normal. ABDOMINAL WALL: Normal. BONES: Normal IMPRESSION: Dense material in the stomach could be food vs hemorrhagic products. Normal appendix. Tiny non obstructive left kidney stone. Dense material in the stomach could be food vs hemorrhagic products.
[2024-08-26 12:06] LABS: CREATININE 0.73 MG/DL (0.60-1.10); TOTAL CARBON DIOXIDE 26.9 MMOL/L (24-32); eCRCL 133 ML/MIN; eGFR > 90 ML/MIN
--- NOTE | 2024-08-26 13:22 | Physician Documentation ---
History of Present Illness Chief Complaint: Abdominal Pain w/vomiting Stated Complaint: ABD PAIN Time Seen by MD: 11:43 Primary Medical Doctor: DR. RÍOS HPI 29 yom h/o chronic abd pain p/w typical abd pain. Ongoing the last year. Crampy left sided pain, decreased appetite, intermittent vomiting and dry heaving. no diarrhea, no blood stools. Normal urine. Losing weight. Occasional THC. Was drinking heavy earlier in the year but has not drank alcohol in 5 months. Has been admitted to [facility] for 2 weeks, has had endoscopy. No FH of colon cancer. Medication Reconciliation Allergies: Coded Allergies: No Known Allergies (Unverified , 05/08/24) Scheduled PRN Loratadine (Claritin), 1 CAP PO DAILY PRN for allergies, (Reported) Past Medical History Past Medical History: GI Bleed Past Surgical History: no surgical history Patient History: 5 family members with etoh uncles,2grandfathers & one had open heart surgery 40-60's old at time of Alcohol Use: Heavy Drug Use: marijuana Lives with: Spouse Lives In: Home Occupation: unemployed Past Social History: Hx cocaine use, reports sobriety from [place] x6-12 months Review of Systems All Other Systems at this time: Reviewed and Negative Constitutional: Denies: fever Cardiovascular: Denies: chest pain Gastrointestinal: Reports: abdominal pain, nausea, vomiting, constipated; Denies: diarrhea, melena, hematemesis, hematochezia, rectal bleeding Genitourinary: Denies: burning, discharge, dysuria Physical Exam Vital Signs: RN Vital Signs have been reviewed: Yes, Temperature: 98.5, Source: Temporal, Heart Rate: 79, Respiratory Rate: 16, BP: 86/53, Pulse Oximetry: 99, Weight: 62.300 General Appearance well appearing no distress moist mucous membranes awake alert oriented abdomen LUQ and LLQ ttp no guarding or rebound. skin pwd well perfused Progress Progress Note UA similar no nitrites, +leuk and Hgb similar to 12/01 with negative culture at that time Results/Orders Reviewed/noted all lab results: Yes Results/Orders Vital Signs 08/26/24 10:34 Temp 98.5 Pulse 79 Resp 16 B/P (MAP) 86/53 Pulse Ox 99 Laboratory Tests Test 08/26/24 10:53 White Blood Count 3.4 L Red Blood Count 3.65 L Hemoglobin 11.4 L Hematocrit 33.6 L Mean Corpuscular Volume 92.0 Mean Corpuscular Hemoglobin 31.3 H Mean Corpuscular Hemoglobin Concent 34.0 Red Cell Distribution Width 16.3 H Platelet Count 95 L Mean Platelet Volume 9.6 Neutrophils (%) (Auto) 46.8 Lymphocytes (%) (Auto) 43.9 Monocytes (%) (Auto) 6.5 Eosinophils (%) (Auto) 1.8 Basophils (%) (Auto) 1.0 Neutrophils # (Auto) 1.6 L Lymphocytes # (Auto) 1.5 Monocytes # (Auto) 0.2 Eosinophils # (Auto) 0.1 Basophils # (Auto) 0.0 CBC Comment Sodium Level 138 Potassium Level 3.8 Chloride Level 105 Carbon Dioxide Level 26.9 Anion Gap 6 L Blood Urea Nitrogen 10 Creatinine 0.73 Estimated GFR/1.73 m2 > 90 BUN/Creatinine Ratio 13.7 Glucose Level 105 H Calcium Level 8.8 Total Bilirubin 4.3 H Aspartate Amino Transf (AST/SGOT) 54 H Alanine Aminotransferase (ALT/SGPT) 35 Alkaline Phosphatase 161 H Total Protein 7.1 Albumin 3.3 L Globulin 3.8 Albumin/Globulin Ratio 0.9 L Lipase 51 Chemistry Comments EKG/XRAY/CT/US/VASC/MRI CT : Impression independent interpretation of ct shows no free fluid or perforation Medical Decision Making Differential Dx:Considerations: Include: Appendicitis, Bowel obstruction, Cholelithasis, Constipation Departure Disposition: HOME / SELF CARE / HOMELESS Impression: Primary Impression: Undifferentiated abdominal pain Additional Impression Text patient presents with chronic abdominal pain ongoing over last year. Has already been worked up by GI, sees Dr. Fernandez. Pain usual, labs improving from baseline Bili, otherwise unremarkable. CT today no acute process. Will plan to have him f/u with his GI specialist. Additional Instructions: Your tests today show no acute abnormality. I see no life threatening issues on your tests today and it is safe for you to follow up with your paper bundler for further evaluation and treatment. Referrals: NO PRIMARY CARE PROVIDER (PCP) Signature Scribe Signature: na Attestation: CHARANJIT Ruiz MD Aug 26, 2024 13:22
[2024-08-26] MEDS: metoclopramide 5 mg/ml inj IV ONE (14:21)
[2024-08-26] MEDS: ringers solution, lacted 1,000 ML IV ONE ×2 (15:08→15:48)
[2024-08-26 15:09] LABS: LEUKOCYTE ESTERASE ,URINE SMALL (Neg); NITRITES, URINE NEGATIVE (Neg); OCCULT BLOOD,URINE LARGE (Neg)
[2024-08-26 15:14] LABS: UA COLLECTION TYPE CLN CATCH MIDSTREAM
[2024-08-26 15:16] LABS: CAL OXALATE CRYSTALS 1+ /HPF (NEGATIVE); MUCUS STRANDS MODERATE /LPF (Neg); SQUAMOUS EPITHELIAL CELL,UR NONE SEEN /LPF (FEW)
[2024-08-26 16:38] LABS: MEAN PLATELET VOLUME 9.1 FL (7.4-10.4); RED CELL DISTRIBUTION WIDTH 16.7 % (11.5-14.5)
[2024-08-26] MEDS ORDERED: METO10TA3 PO (17:15)
[2024-08-26 17:29] VITALS: BP 103/50; PULSE 71; RESP 16; O2SAT 100
== END 2024-08-26 17:35 | disposition home or self-care (01) ==
LOC: ER 10:31
DX: R10.32 Left lower quadrant pain (principal); R10.11 Right upper quadrant pain; F12.90 Cannabis use, unspecified, uncomplicated; F10.90 Alcohol use, unspecified, uncomplicated; F14.90 Cocaine use, unspecified, uncomplicated; Y90.9 Presence of alcohol in blood, level not specified; Z56.0 Unemployment, unspecified
CPT/HCPCS: 36415; 74176; 80053; 81001; 83605; 83690; 85025; 85027; 87088; 96365; 96366; 96375; 99285; J1200; J2470; J2765; J7120; 96361